=== PATIENT | male | born 1970 | race Caucasian/White ===

== ENCOUNTER → 2023-11-21 06:28 | Day surgery (SDC) | payer OTHER, SELFPAY | LOC: GI 06:28 | PROVIDERS: ATTENDING PHYSICIAN Internal Medicine | DX: Z12.11 Encounter for screening for malignant neoplasm of colon (principal); K64.8 Other hemorrhoids; D12.3 Benign neoplasm of transverse colon; K62.1 Rectal polyp; Q43.8 Other specified congenital malformations of intestine; K22.89 Other specified disease of esophagus; K44.9 Diaphragmatic hernia without obstruction or gangrene; K31.7 Polyp of stomach and duodenum; K31.89 Other diseases of stomach and duodenum; Z13.810 Encounter for screening for upper gastrointestinal disorder; K29.50 Unspecified chronic gastritis without bleeding; K22.70 Barrett's esophagus without dysplasia | CPT/HCPCS: 43251; 45380; 88305; 88342 ==